=== PATIENT | male | born 1945 | race Caucasian/White ===

== ENCOUNTER 2020-04-07 12:41 | Outpatient (CLI) | payer MEDICARE, OTHER, SELFPAY | END 2020-04-07 12:42 | disposition home or self-care (01) | LOC: CHSLAB 12:51 | PROVIDERS: Visit Provider Specialist | DX: C44.319 Basal cell carcinoma of skin of other parts of face (principal); L85.9 Epidermal thickening, unspecified | CPT/HCPCS: 88305; 88342 ==

== ENCOUNTER 2022-04-26 13:56 | Outpatient (CLI) | payer MEDICARE, SELFPAY | END 2022-04-26 13:57 | disposition home or self-care (01) | LOC: CHSLAB 14:04 | PROVIDERS: PCP Specialist; Visit Provider Specialist | DX: C44.529 Squamous cell carcinoma of skin of other part of trunk (principal) | CPT/HCPCS: 88305 ==

== ENCOUNTER 2022-09-22 15:16 | Outpatient (CLI) | payer MEDICARE, SELFPAY | END 2022-09-22 15:17 | disposition home or self-care (01) | LOC: CHSLAB 15:20 | PROVIDERS: PCP Family Medicine; Visit Provider Specialist | DX: C44.629 Squamous cell carcinoma of skin of left upper limb, including shoulder (principal) | CPT/HCPCS: 88305 ==